=== PATIENT | male | born 1985 | race African-American/Black ===

== ENCOUNTER 2016-11-01 14:09 | Emergency (ER) | payer BC, OTHER ==
[~2016-11-01 14:09] MED LIST: CIPRO250 MG PO; LORTAB 5/500 TA1 TA2 PO; NO MEDICATIONS; PYRIDIUM100 MG PO
== END 2016-11-01 15:15 | disposition home or self-care (01) ==
LOC: CFTX 14:09 → CED 14:09 → CFTX 15:04
DX: M62.838 Other muscle spasm (principal); Z88.0 Allergy status to penicillin; Z88.2 Allergy status to sulfonamides; Z88.5 Allergy status to narcotic agent
CPT/HCPCS: 99283

== ENCOUNTER 2016-11-02 12:50 | Emergency (ER) | payer BC, OTHER | END 2016-11-02 16:05 | disposition home or self-care (01) | LOC: CED 12:50 → CFTX 12:50 | DX: R07.81 Pleurodynia (principal); Z88.0 Allergy status to penicillin; Z88.2 Allergy status to sulfonamides; Z88.5 Allergy status to narcotic agent; Y09 Assault by unspecified means; Y92.009 Unspecified place in unspecified non-institutional (private) residence as the place of occurrence of the external cause | CPT/HCPCS: 96372; 99284; J1885 ==